=== PATIENT | male | born 1955 | race Caucasian/White ===

== ENCOUNTER → 2017-04-25 16:04 | Outpatient (CLI) | payer OTHER, SELFPAY ==
--- NOTE | 2017-04-25 12:20 | LES_PTH ---
PATIENT: CHARITO CAROLINA LOC: [facility] U#:[id number] AGE/SX: 69/M ROOM: RE04/25/[address]: Dr. Alfredo Monsalve MD : 1955 BED: DIS: SPEC #: [id number] RECD: 04/25/17 15:46 STATUS: DOMINIC ERIKA #: [id number] KAREY: 04/25/17 12:[address]: Alfredo Monsalve DEPT: SURGICAL PATHOLOGY RECD BY: Arias Tiwari Tissues: Skin of abdomen, NOS Procedures: Surgery Specimen Level IV HEADER OPERATION: Excision PRE-OP DIAGNOSIS: Upper abdomen skin lesion TISSUE SUBMITTED: Atypical nevus MICROSCOPIC DIAGNOSIS Chest/upper abdominal skin lesion, excisional biopsy: Pigmented seborrheic keratosis. KONG:iris 04/29/17 COMMENT Case has been reviewed in consultation with Dr. Grace who concurs with the above diagnosis. IDC:AM MICROSCOPIC DESCRIPTION Slides are reviewed. GROSS DESCRIPTION Received in fixative is one container labeled with the patient's name and designated chest nevus. The specimen consists of a light wang fragment of excised skin measuring 1 x 0.6 x 0.3 cm. The specimen is inked, sectioned and totally submitted in one cassette. / JULIO CÉSAR:iris 04/28/17 TC:1 CPT: 55529
== END ==
PROVIDERS: Family Provider Family Medicine; PCP Family Medicine; Visit Provider Family Medicine
DX: L82.1 Other seborrheic keratosis (principal)
CPT/HCPCS: 88305

== ENCOUNTER → 2017-12-08 09:46 | Outpatient (CLI) | payer OTHER, SELFPAY ==
[2017-12-08 12:27] LABS: ALB/GLOB Ratio 1.2 RATIO (0.9-2.4); AST(SGOT) 21 U/L (15-37); Alanine Aminotransfer ALT/SGPT 31 U/L (16-61); Albumin, Serum 4.2 g/dL (3.2-5.0); Alkaline Phosphatase 78 U/L (45-117); Anion Gap 4 (5-15); BUN 14 mg/dL (7-18); BUN/Creat Ratio 16.8 RATIO (10-20); Calcium,Total 8.8 mg/dL (8.5-10.1); Chloride 106 mmol/L (98-107); Cholesterol 157 mg/dL (200); Creatinine, Serum 0.84 mg/dL (0.70-1.30); EST Glomerular Filtration Rate 99 mL/min (>60); Est Glom Filt Rate - Afr Amer 120 mL/min (>60); Globulin 3.4 g/dL (2.2-4.2); Glucose 97 mg/dL (74-106); High Density Lipoprotein 47 mg/dL; Potassium 4.1 mmol/L (3.5-5.1); Protein, Total 7.6 g/dL (6.4-8.2); Sodium Level 138 mmol/L (136-145); Triglycerides 171 mg/dL; Very Low Density Lipoprotein 34 mg/dL (5-40)
[2017-12-08 14:09] LABS: Microalbumin,Random Urine < 5.0 mg/L (NO RANGE EST.)
[2017-12-09 09:47] LABS: Hep C Antibodies <0.1 s/co ratio (0.0-0.9)
== END ==
PROVIDERS: Family Provider Family Medicine; PCP Family Medicine; Visit Provider Family Medicine
DX: Z00.00 Encounter for general adult medical examination without abnormal findings (principal); I10 Essential (primary) hypertension; L40.9 Psoriasis, unspecified
CPT/HCPCS: 36415; 80053; 80061; 82043; 82570; 86803

== ENCOUNTER 2018-02-03 09:22 | Emergency (ER) | payer OTHER, SELFPAY ==
[2018-02-03 09:26] VITALS: BP 165/92; PULSE 62; RESP 16; TEMP 37.1; O2SAT 98; BMI 32.3
--- NOTE | 2018-02-03 09:50 | RAD_ITS ---
STUDY: X-RAY - LEFT FOOT CLINICAL: Male, 62 years old. Pain and swelling and bruising following a fall TECHNIQUE: 3 view(s) of the foot. COMPARISON: None. FINDINGS: There is a plantar calcaneal spur. Normal visualized subtalar, talonavicular, calcaneocuboid, tarsal and tarsometatarsal articulations. Normal metatarsi. There is degenerative arthrosis of the metatarsophalangeal joint of the hallux . Normal tibial and fibular sesamoid bones. Normal interphalangeal joint of the great toe. Normal phalanges of the great toe. Normal second through fifth metatarsophalangeal joints. Normal interphalangeal joints and phalanges of the lesser toes. There is non-specific soft tissue swelling of the foot. Vascular calcification. RAD/Foot min 3 Views IMPRESSION: Plantar spur. Soft tissue swelling. Electronically Signed: Ronnie Rivera MD at 10:10 EST Tel [phone], Service support ,
--- NOTE | 2018-02-03 09:50 | RAD_ITS ---
STUDY: X-RAY - LEFT ANKLE REASON FOR EXAM: Male, 62 years old. Pain and swelling following a fall. TECHNIQUE: 3 view(s) of the ankle. COMPARISON: None. FINDINGS: Normal visualized distal tibia and fibula. Normal medial and lateral malleoli. Normal tibiotalar articulation and ankle mortise. Plantar spur. The visualized subtalar, talonavicular, calcaneocuboid and tarsal articulations are normal. Basilar calcification. Soft tissue swelling worse on the lateral side. RAD/Ankle min 3 Views IMPRESSION: Soft tissue swelling. Plantar spur. Electronically Signed: Ronnie Rivera MD at 10:11 EST Tel [phone], Service support ,
--- NOTE | 2018-02-03 10:24 | ED.VISSUMM ---
- ER Visit Summary Date of Service: 02/03/18 Chief Complaint: [Fall with injury to left ankle] History of Present Illness: The patient is a 62 M [presents to the emergency department after sustaining a fall 2 days ago. Patient states that he was on a ladder a couple of feet off the ground when the ladder slid backwards and he felt kind of onto his right side but twisted his left ankle. Patient was able to bear weight but having continued swelling and bruising which concerned him. Patient denies any other injuries other than a small abrasion to his forehead. Patient denies any head or neck pain. Patient is not on any blood thinners.] Physical Examination: [ HEENT-PERRLA, EOMI. Cranial nerves II through XII grossly intact. TMs clear. Mucous membranes moist. No adenopathy. Cardiovascular-regular rate and rhythm without murmur or ectopy Lungs-clear to auscultation, chest wall stable without crepitus or subcu emphysema Abdomen-normoactive bowel sounds, soft, nontender, no rebound or rigidity, no peritoneal signs. Extremities-intact ?4, normal range of motion, normal pulses. Left ankle-patient has tenderness diffusely about the medial lateral malleolus. Patient has soft tissue swelling diffusely. Patient has tenderness over the talofibular joint. Patient does have some ecchymosis and bruising inferior to the medial lateral malleolus onto the medial lateral portions of the calcaneus. Patient has mild tenderness over the base of the fifth metatarsal. Patient has no real tenderness over the Achilles tendon and no defect in the tendon palpated. Patient has no tenderness over the proximal fibular head. Patient nervously intact. Test Results: [X-rays of the left foot and ankle obtained showed no fractures and only soft tissue swelling.] Emergency Department Course and Treatment: [Will be given an air splint] Treatment Plan: [Advised ice and elevate extremity. Patient to follow-up with his primary care physician in 5-7 days.] Disposition: [This charged home in stable condition] Impression: [Ankle fall Left foot and ankle sprain] This note was generated with [employer] dictation software. It may contain incorrect words, spelling, and punctuation that were not noted in review of the chart prior to signing ED Disposition - Plan for ED Patient: Chief Complaint: Lower Extremity Injury Referrals: Alfredo Monsalve MD [Primary Care Provider] -
--- NOTE | 2018-02-03 10:26 | ED.DEP ---
ED Disposition - Plan for ED Patient: Chief Complaint: Lower Extremity Injury Instructions: ED Sprain Foot, ED Sprain Ankle W X Ray Referrals: Alfredo Monsalve MD [Primary Care Provider] - 5-7 Days
--- OUTSIDE RECORDS SUMMARY | 2018-03-18 00:04 | XMS RPT_ITS ---
:1955 Author Organization [facility] Care Team Providers Name Role Phone Alfredo Monsalve Attending Unavailable Alfredo Monsalve Referring Unavailable Alfredo Monsalve Primary Care Unavailable Alfredo Monsalve Attending Unavailable Alfredo Monsalve Primary Care Unavailable Alfredo Monsalve Primary Care Unavailable Nicolás Talbot Unavailable PROBLEMS PROBLEMS No Problem Records FoundPROCEDURES PROCEDURES No Procedure Records FoundRESULTS RESULTS DISCHARGE INSTRUCTION Observed: 02/03/2018 Status: F Source: YULAN 10:27 AM [facility] REPOSITORY [facility] Medical Records Department [address] [facility] [address] [place] [address] Discharge Instruction 02/03/18 1026 MR#: [id number] Acct: [id number] Name: CHARITO CAROLINA Rep #: [id number] : 1955 62 From: Nicolás Talbot DO PCP: Alfredo Monsalve MD Status: REG ER ED Disposition - Plan for ED Patient: Chief Complaint: Lower Extremity Injury Instructions: ED Sprain Foot, ED Sprain Ankle W X Ray Referrals: Alfredo Monsalve MD [Primary Care Provider] - 5-7 Days What to do if you have Problems For any increased pain, shortness of breath, bleeding, nausea or vomiting, chest pain, or any unexpected problems, contact your Primary Care Provider. Call [facility] ([phone]) or report to the closest Emergency Room. Call 911 if necessary. 02/03/18 1027 <Electronically signed by Nicolás Talbot DO> Date Nicolás Talbot DO Cosigner Signature (If Indicated): Date CC: Alfredo Monsalve MD EMERGENCY DEPARTMENT Observed: 02/03/2018 Status: F Source: YULAN SUMMARY 10:26 AM [facility] RE[facility]ITORY [facility] Medical Records Department [address] [place] [address] Emergency Department Summary 02/03/18 1024 MR#: [id number] Acct: [id number] Name: CHARITO CAROLINA Rep #: [id number] : 1955 62 From: Nicolás Talbot DO PCP: Alfredo Monsalve MD Status: REG ER - ER Visit Summary Date of Service: 02/03/18 Chief Complaint: [Fall with injury to left ankle] History of Present Illness: The patient is a 62 M [presents to the emergency department after sustaining a fall 2 days ago. Patient states that he was on a ladder a couple of feet off the ground when the ladder slid backwards and he felt kind of onto his right side but twisted his left ankle. Patient was able to bear weight but having continued swelling and bruising which concerned him. Patient denies any other injuries other than a small abrasion to his forehead. Patient denies any head or neck pain. Patient is not on any blood thinners.] Physical Examination: [ HEENT-PERRLA, EOMI. Cranial nerves II through XII grossly intact. TMs clear. Mucous membranes moist. No adenopathy. Cardiovascular-regular rate and rhythm without murmur or ectopy Lungs-clear to auscultation, chest wall stable without crepitus or subcu emphysema Abdomen-normoactive bowel sounds, soft, nontender, no rebound or rigidity, no peritoneal signs. Extremities-intact 4, normal range of motion, normal pulses. Left ankle-patient has tenderness diffusely about the medial lateral malleolus. Patient has soft tissue swelling diffusely. Patient has tenderness over the talofibular joint. Patient does have some ecchymosis and bruising inferior to the medial lateral malleolus onto the medial lateral portions of the calcaneus. Patient has mild tenderness over the base of the fifth metatarsal. Patient has no real tenderness over the Achilles tendon and no defect in the tendon palpated. Patient has no tenderness over the proximal fibular head. Patient nervously intact. Test Results: [X-rays of the left foot and ankle obtained showed no fractures and only soft tissue swelling.] Emergency Department Course and Treatment: [Will be given an air splint] Treatment Plan: [Advised ice and elevate extremity. Patient to follow-up with his primary care physician in 5-7 days.] Disposition: [This charged home in stable condition] Impression: [Ankle fall Left foot and ankle sprain] This note was generated with [employer] dictation software. It may contain incorrect words, spelling, and punctuation that were not noted in review of the chart prior to signing ED Disposition - Plan for ED Patient: Chief Complaint: Lower Extremity Injury Referrals: Alfredo Monsalve MD [Primary Care Provider] - What to do if you have Problems For any increased pain, shortness of breath, bleeding, nausea or vomiting, chest pain, or any unexpected problems, contact your Primary Care Provider. Call [facility] ([phone]) or report to the closest Emergency Room. Call 911 if necessary. 02/03/18 1026 <Electronically signed by Nicolás Talbot DO> Date Nicolás Talbot DO Cosigner Signature (If Indicated): Date CC: Alfredo Monsalve MD FOOT MIN 3 VIEWS Observed: 02/03/2018 Status: F Source: ANMOL 9:43 AM [facility] HOSPITAL REPOSITORY [facility] Imaging Services [address] [place] [address] Foot min 3 Views MR#: [id number] Acct: [id number] Name: CHARITO CAROLINA Rep #: [id number] : 1955 M 62 From: Ronnie Rivera MD PCP: Alfredo Monsalve MD Status: REG ER Study: Foot min 3 Views Date of Exam: 02/03/18 Exam# [id number] Ordering Dr: Nicolás Talbot DO STUDY: X-RAY - LEFT FOOT CLINICAL: Male, 62 years old. Pain and swelling and bruising following a fall TECHNIQUE: 3 view(s) of the foot. COMPARISON: None. FINDINGS: There is a plantar calcaneal spur. Normal visualized subtalar, talonavicular, calcaneocuboid, tarsal and tarsometatarsal articulations. Normal metatarsi. There is degenerative arthrosis of the metatarsophalangeal joint of the hallux . Normal tibial and fibular sesamoid bones. Normal interphalangeal joint of the great toe. Normal phalanges of the great toe. Normal second through fifth metatarsophalangeal joints. Normal interphalangeal joints and phalanges of the lesser toes. There is non-specific soft tissue swelling of the foot. Vascular calcification. RAD/Foot min 3 Views IMPRESSION: Plantar spur. Soft tissue swelling. Electronically Signed: Ronnie Rivera MD at 10:10 EST Tel [phone], Service support , CC: Alfredo Monsalve MD; Nicolás Talbot DO Health Researcher: Signed ANKLE MIN 3 VIEWS Observed: 02/03/2018 Status: F Source: ANMOL 9:43 AM [facility] HOSPITAL REPOSITORY [facility] Imaging Services [address] [place] [address] Ankle min 3 Views MR#: [id number] Acct: [id number] Name: CHARITO CAROLINA Rep #: [id number] : 1955 M 62 From: Ronnie Rivera MD PCP: Alfredo Monsalve MD Status: REG ER Study: Ankle min 3 Views Date of Exam: 02/03/18 Exam# [id number] Ordering Dr: Nicolás Talbot DO STUDY: X-RAY - LEFT ANKLE REASON FOR EXAM: Male, 62 years old. Pain and swelling following a fall. TECHNIQUE: 3 view(s) of the ankle. COMPARISON: None. FINDINGS: Normal visualized distal tibia and fibula. Normal medial and lateral malleoli. Normal tibiotalar articulation and ankle mortise. Plantar spur. The visualized subtalar, talonavicular, calcaneocuboid and tarsal articulations are normal. Basilar calcification. Soft tissue swelling worse on the lateral side. RAD/Ankle min 3 Views IMPRESSION: Soft tissue swelling. Plantar spur. Electronically Signed: Ronnie Rivera MD at 10:11 EST Tel [phone], Service support , CC: Alfredo Monsalve MD; Nicolás Talbot DO Health Researcher: Signed COMPREHENSIVE METABOLIC Collected: 12/08/2017 Status: F Source: ANMOL PROFIL 9:48 AM [facility] REPOSITORY TYPE CODE TESTS RESULT OUT OF RANGE REFERENCE UNITS LAB L501.0100 74-106 mg/dL Normal GLU 97 Result Comment: Please note revised GLUCOSE reference range effective 2017. LAB L501.1000 7-18 mg/dL Normal BUN 14 LAB L501.1100 0.70-1.30 mg/dL Normal CREAT,SERUM 0.84 Result Comment: The validity of the calculated GFR AND GFRAA in patients over 70 years has not been determined. Clinical correlation is essential. LAB L501.1110 >60 mL/min Normal EST GFR 99 Result Comment: Non- GFR Calc LAB L501.1115 >60 mL/min Normal EST GFR - AA 120 Result Comment: GFR Calc LAB L501.1300 10-20 RATIO Normal BUN/CRE 16.8 LAB L501.1500 6.4-8.2 g/dL T Normal PROT 7.6 LAB L501.1800 3.2-5.0 g/dL Normal ALB 4.2 LAB L501.1950 2.2-4.2 g/dL Normal GLOB 3.4 LAB L501.2000 0.9-2.4 RATIO Normal A/G 1.2 LAB L501.2200 8.5-10.1 mg/dL CA Normal 8.8 LAB L501.4100 15-37 U/L Normal AST 21 LAB L501.4305 45-117 U/L Normal ALK P 78 LAB L501.4405 16-61 U/L Normal ALT 31 LAB L501.4600 0.20-1.00 mg/dL T Normal BILI 0.80 LAB L501.5300 136-145 mmol/L NA Normal 138 LAB L501.5600 3.5-5.1 mmol/L K Normal 4.1 LAB L501.5900 98-107 mmol/L CL Normal 106 LAB L501.6100 21.0-32.0 mmol/L Normal CO2 28.0 LAB L501.6200 5-15 Low GAP 4 Performed By: #### L500.4050, L500.4100, L502.0250 #### [facility] [facility]. [place], [place], [id number] #### L3100.0625 #### [facility] (refer to report for specific site) refer to report for address and phone number LIPID PROFILE Collected: 12/08/2017 Status: F Source: YULAN 9:48 AM [facility] REPOSITORY TYPE CODE TESTS RESULT OUT OF RANGE REFERENCE UNITS LAB L501.4900 200 mg/dL Normal CHOL 157 Result Comment: <200 mg/dL Desirable 200-240 mg/dL Borderline >240 mg/dL High Risk LAB L501.5000 mg/dL Normal TRIG 171 Result Comment: The drugs N-Acetylcysteine and Metamizole may falsely depress this assay. Serum Triglycerides Reference Interval Normal <150 mg/dL Borderline high 150 - 199 mg/dL High 200 - 499 mg/dL Very High > or = 500 mg/dL LAB L501.6400 mg/dL Normal HDL 47 Result Comment: The drugs N-Acetylcysteine and Metamizole may falsely depress this assay. Reference Range HDL <40 mg/dL Low HDL Cholesterol HDL >or= 60 mg/dL High HDL Cholesterol LAB L501.6500 0-130 mg/dL Normal LDL 76 LAB L501.6600 5-40 mg/dL Normal VLDL 34 Performed By: #### L500.4050, L500.4100, L502.0250 #### [facility] [address] [place], [address] #### L3100.0625 #### [facility] (refer to report for specific site) refer to report for address and phone number MICROALB:CREAT Collected: 12/08/2017 Status: F Source: [facility] UR 9:48 AM [facility] REPOS[facility]ORY TYPE CODE TESTS RESULT OUT OF RANGE REFERENCE UNITS LAB L501.1200 NO RANGE EST. mg/dL 23.90 Normal UR CREAT LAB L502.0500 NO RANGE EST. mg/L < 5.0 Normal MICROALBUMI N,UR LAB L502.0600 <30 mg/g CRE mg/g CRE Test Normal not performed MALB:CREAT Performed By: #### L500.4050, L500.4100, L502.0250 #### [facility] [address] [place], [place], [address] #### L3100.0625 #### [facility] (refer to report for specific site) refer to report for address and phone number HEPATITIS C ANTIBODIES Collected: 12/08/2017 Status: F Source: ANMOL 9:48 AM [facility] REPOS[facility]ORY TYPE CODE TESTS RESULT OUT OF RANGE REFERENCE UNITS LAB L3100.0650 0.0-0.9 s/co ratio Normal HEP C AB <0.1 Result Comment: Negative: < 0.8 Indeterminate: 0.8 - 0.9 Positive: > 0.9 The CDC recommends that a positive HCV antibody result be followed up with a HCV Nucleic Acid Amplification test (603210). Performed at: - [facility] [address], [place], [place] [address] Doll Dresser: Philip Kinsey PhD, Phone: [phone] Performed By: #### L500.4057, L500.0800, L502.0250 #### [facility] [address] [facility]. [place], [place], [address] #### L3100.0625 #### [facility] (refer to report for specific site) refer to report for address and phone number LESION (CHOOSE SITE) Observed: 04/25/2017 Status: F Source: YULAN 12:20 PM [facility] REPOSITORY Patient: CHARITO CAROLINA : 1955 (61/M) Acct Num: [id number] Phys: Bello GARCIA,Alfredo Unit Num: [id number] Loc: [facility] Specimen: [id number] Received: 04/25/17 - 1545 Spec Type: Lesion TISSUES TISSUES: Skin of abdomen, NOS COMMENT Case has been reviewed in consultation with Dr. Grace who concurs with the above diagnosis. IDC:AM GROSS DESCRIPTION Received in fixative is one container labeled with the patient's name and designated chest nevus. The specimen consists of a light wang fragment of excised skin measuring 1 x 0.6 x 0.3 cm. The specimen is inked, sectioned and totally submitted in one cassette. / AM:iris 04/28/17 TC:1 CPT: 60995 HEADER OPERATION: Excision PRE-OP DIAGNOSIS: Upper abdomen skin lesion TISSUE SUBMITTED: Atypical nevus MICROSCOPIC DESCRIPTION Slides are reviewed. MICROSCOPIC DIAGNOSIS Chest/upper abdominal skin lesion, excisional biopsy: Pigmented seborrheic keratosis. SJ:iris 04/29/17 Signed Niles Kumar 04/29/17 <signature on file> Performed By: #### PLES #### [facility] [address] [facility] [place], [address] ALLERGIES ALLERGIES DATE TYPE / CODE NAME / CODE REACTION SEVERITY SOURCE 02/03/2018 Drug No Known Unknown [facility] Allergy/4160 Allergies/F00 Hospital 34665(SNOMED [id number](RXNOR Repository CT) M) ENCOUNTERS ENCOUNTERS ADMIT/DISCHARGE ACCOUNT ADMITTING ENCOUNTER LOCATION SOURCE NUMBER CLASS 02/03/2018/ [id number] Emergency [place] [facility] 8 2 [facility] ing:ED Repository 12/08/2017 [id number] Ambulatory [place] [facility] 6 [facility] ing:MFPLAB Repository 04/25/2017 [id number] Ambulatory [place] [facility] [facility] ing:[facility] Repository PAYERS PAYERS ENCOUNTER GUARANTOR PAYER SUBSCRIBER SOURCE 02/03/2018 CHARITO [place] Alfonzo CHARITO [place] [facility] [id number] Insurance:[facility]: [address] [id number] Number: Repository [id number]: 330 [id number] [phone] () Date:5089-03-19[id number] [place] [id number]: 02/03/2018 Secondary NOT GIVENUNK [place] Insurance:SELF PAY [facility] Number: Effective Repository Date:2018-02-03 12/08/2017 Charito Solis [id number] Insurance:[facility]: [place] [id number] [id number] Number: Repository [id number]: 330 [id number] [phone] () Date:[id number] [facility] [id number] [address]HB: 12/08/2017 Secondary NOT GIVENUNK [place] Insurance:SELF PAY [facility] Number: Effective Repository Date:2017-12-08 04/25/2017 Charito Solis [id number] Insurance:[facility]: [address] [id number] Number: Repository [id number]: [phone] [id number] [phone] () Date:2049-86-72[address], [place] [address]QN: 04/25/2017 Secondary NOT GIVENUNK [place] Insurance:SELF PAY [facility] Number: Effective Repository Date:2017-04-25
== END 2018-02-03 10:39 | disposition home or self-care (01) ==
LOC: ED 09:49
PROVIDERS: Emergency Provider Emergency Medicine; Family Provider Family Medicine; PCP Family Medicine
DX: S93.402A Sprain of unspecified ligament of left ankle, initial encounter (principal); S93.602A Unspecified sprain of left foot, initial encounter; S00.81XA Abrasion of other part of head, initial encounter; W11.XXXA Fall on and from ladder, initial encounter; Y93.9 Activity, unspecified; Y92.9 Unspecified place or not applicable; Y99.9 Unspecified external cause status; Z79.82 Long term (current) use of aspirin; Z79.899 Other long term (current) drug therapy
CPT/HCPCS: 73610; 73630; 99283

== ENCOUNTER 2018-07-23 11:00 | Outpatient (RCR) | payer OTHER, SELFPAY ==
--- NOTE | 2018-07-07 15:41 | HP.PTEVAL_ITS ---
Patient's Visit Information CHARITO CAROLINA is a 62 year old M referred to Physical Therapy by Alfredo Monsalve MD with a diagnosis of R gluteal strain.. Date of Evaluation: 07/07/18 Physical Therapist: Alfredo Vanegas, DPT, OCS, CSCS - Visit Plan Frequency: 1x/Week Duration: 4-6 Weeks Plan: weekly x 4-6 as needed for. monitor effects of stretches., Add ball roll DTR to gluts. Add hip strength bridges, SLR, clamshells. Add WB hip exercises and RDL. - Subjective Findings: A couple years ago had B butt pain and numbness down leg. Diagnosed with gluteal strain and did SKC, piriformis stretch and it went away. It has c ome back over the last year and getting more active after penitentiary in February as he likes to walk in the [employer]. Going to [place] in a month to hike. Has to stop after a mile now to stretch. Exercises seem to help him walk every other time painfree and is helping. Golfing makes him worse. Cutting down trees can be worse. Watching tV may necessitate several adjustments to be comfortable. Sleep is OK. Standing in place makes it very noticeable. Pain is R gluteal and down into R lateral upper leg now and then. Intermittent numbness in leg with standing. Retired from desk work. Basic ADLs are OK - Pain R gluteal Pain Intensity (Out of 10): 0 Pain Intensity Range: 0, 8 Comment: walking , chainsawing worse - Objective Walks and steps are normal as are transfers. I am unable to ellicit pain today. Mild tenderness in R glut/piriformis. 4/5 Hip strength R without pain ext adn abd and ext rotation, 4+ flexion/adduction, no pain. Tightness obvious in B HS, ITB(only to neutral), and piriformis. AROM B hips WNL and without pain. Knees adn ankels strength adn ROM WNL. Sensation WNL to gross light touch in LE. reflexes 2/3 patella and achilles. - hip scouring. L/S AROM WNL and without pain. - Goals Goal 1:: I approp HEP to minimize future problems Goal Time Frame: 4-6 Weeks Goal 2:: Pt feel 90% better with hip symptoms. Goal Time Frame: 4-6 Weeks Goal 3:: Walk for fitness adn cut wood without symptoms. Goal Time Frame: 4-6 Weeks - Rehabilitation Potential Physical Therapy Diagnosis: R gluteal tightness adn strain. Rehabilitation Potential: Good - Anticipated Interventions Patient/Client Instruction: Educate patient on: Condition, Plan of Care For the Purpose of:: To decrease pain, To increase tolerance to activity/condition/position Therapeutic Exercise to Include: Strength training, Flexibilty training, Passive ROM, Active ROM For the Purpose of:: To increase tolerance to activity/condition/position, To improve ability of physical actions for home/community/work/leisure Manual Therapy Techniques to Include: Soft tissue mobilization For the Purpose of:: To decrease pain Thank you for the opportunity to evaluate your patient. For Medicare and Medicare HMO plans, please review the plan of care and approve it. It will need to be FAXED BACK to us at [phone] for Medicare purposes. For Medicare only, by signing this I certify the plan of care. Please let me know if there are questions or concerns regarding this plan of care. Physician Signature: Date:
--- NOTE | 2018-07-23 11:12 | HP.PTDCSUM ---
HP - PT D/C Summary It has been my pleasure to treat CHARITO CAROLINA under orders from Alfredo Monsalve MD, for the diagnosis of R gluteal strain. for a total of 3 visit(s). Discharge Date: 07/23/18 Please see the following information for a summary of their discharge status. - Subjective Subjective: Doing exercises regularly. had three days of not much activity but back to regular walks gives him pain. Resting is comfortable adn that is a plus. Walked Friday and did well with 2/10 pain. Friday woke up painful , did stretches and felt better. Cut grass yesterday for 90 minutes. Also did weed wacking for 30 minutes. Hurt immediately walking afterwards. - Pain R gluteal Pain Intensity (Out of 10): 3 - Overall Improvement % Improvement: 10 - Objective Objective/Function: R hip adduction adn IR slightly limited vs L, LB extension is mod limited and reporduces R glut pain, slight tenderness in R glute but not to contraction. weak in gluts and core at 4-/5 - Goals Goal 1:: I approp HEP to minimize future problems Goal Progress: Goal Met Goal 2:: Pt feel 90% better with hip symptoms. Goal Progress: Not Progressing Goal 3:: Walk for fitness adn cut wood without symptoms. Goal Progress: Not Progressing - Plan Plan: D//C...pt wishes to return to doctor for further diagnostics and is appropriate to do so as he is frustrated. I am suspicious of R hip OA vs L/S facet stenosis. - D/C Information Discharge Comments: Pt to call doctor for next step. If there are questions or concerns regarding this patient's physical therapy, please feel free to call me at [phone]. Thank you for the referral of this patient. Sincerely, Alfredo Vanegas, DPT, OCS, CSCS
== END 2018-07-23 19:00 | disposition home or self-care (01) ==
LOC: PT 11:00
PROVIDERS: Family Provider Family Medicine; PCP Family Medicine; Visit Provider Family Medicine
DX: S76.311D Strain of muscle, fascia and tendon of the posterior muscle group at thigh level, right thigh, subsequent encounter (principal)
CPT/HCPCS: 97110; 97162; 97530

== ENCOUNTER → 2019-09-15 13:56 | Outpatient (CLI) | payer OTHER, SELFPAY ==
[2019-09-15 15:51] LABS: Absolute Neutrophil Count 5.4 X10^3/uL (2.0-7.7); Basophil# 0.04 X10^3/uL; Basophil% 0.5 % (0-1); Eosinophils% 3.7 % (0-5); Hematocrit 44.5 % (40-54); Hemoglobin 15.6 g/dL (13.0-16.5); Lymphocyte % 20.8 % (19-41); Mean Corp Hgb Conc 35.1 g/dL (32-36); Mean Corpuscular Hgb 31.2 pg (27.0-32.0); Mean Platelet Vol. 10.1 fl (6.2-12.0); Monocyte# 0.72 X10^3/uL; Monocyte% 8.8 % (0-10); NRBC Flagged by Analyzer 0 % (0-5); Neutrophil % 65.8 % (47-70); Platelet Count 205 K/mm3 (150-450); RBC Distribution Width CV 11.9 % (11.6-14.6); RBC Distribution Width SD 38.7 fl (35.1-43.9); White Blood Count 8.2 K/mm3 (4.4-11.0)
[2019-09-15 16:16] LABS: ALB/GLOB Ratio 1.2 RATIO (0.9-2.4); AST(SGOT) 27 U/L (15-37); Alanine Aminotransfer ALT/SGPT 36 U/L (16-61); Albumin, Serum 4.2 g/dL (3.2-5.0); Alkaline Phosphatase 79 U/L (45-117); Anion Gap 7 (5-15); BUN 17 mg/dL (7-18); Calcium,Total 9.3 mg/dL (8.5-10.1); Chloride 106 mmol/L (98-107); Creatinine, Serum 0.95 mg/dL (0.70-1.30); EST Glomerular Filtration Rate 85 mL/min (>60); Est Glom Filt Rate - Afr Amer 103 mL/min (>60); Globulin 3.4 g/dL (2.2-4.2); Glucose 89 mg/dL (74-106); PSA,Total - Annual Screen 0.75 ng/mL (0.00-4.00); Potassium 4.1 mmol/L (3.5-5.1); Protein, Total 7.6 g/dL (6.4-8.2); Sodium Level 139 mmol/L (136-145)
[2019-09-15 18:07] LABS: Microalbumin:Creatinine Ratio 7.4 mg/g CRE (<30 mg/g CRE)
== END ==
PROVIDERS: PCP Family Medicine; Visit Provider Family Medicine
DX: Z00.00 Encounter for general adult medical examination without abnormal findings (principal); J39.9 Disease of upper respiratory tract, unspecified; I10 Essential (primary) hypertension
CPT/HCPCS: 36415; 80053; 82043; 82570; 84153; 85025; G0103

== ENCOUNTER → 2020-03-24 10:05 | Outpatient (CLI) | payer OTHER, SELFPAY ==
--- NOTE | 2020-03-24 10:10 | RAD_ITS ---
STUDY: X-RAY - LUMBAR SPINE REASON FOR EXAM: Male, 64 years old. right lower back pain TECHNIQUE: 5 view(s) of the lumbar spine were obtained. COMPARISON: None FINDINGS: Normal lumbar lordosis. There is no substantial scoliosis. There is a normal alignment of the vertebrae. Normal vertebral body height at L1-L4. The L5 vertebral body is slightly wedge-shaped posteriorly. The anterior to posterior measurement of L5 (4.6 cm) is less than the AP measurement of L4 (4.8 cm) findings suggest mild hypoplasia of L4. A definite pars intraarticularis defect is not clearly visualized but can be elusive at this level. Mild disc narrowing at L5-S1. Facet arthrosis primarily at L4-5 and L5-S1. Atherosclerotic vascular calcifications. RAD/L/S Spine Min 4 Views IMPRESSION: Normal alignment of the lumbar spine without fracture, osteolytic or blastic bone lesion. Slightly wedge-shaped L5 slightly reduced in AP measurement compared to L4 suggesting a mild hypoplasia of L5 which is commonly associated with bilateral pars interarticularis defect which is not clearly visualized but may be elusive at this level. Negative for spondylolisthesis. Mild generalized degenerative disc changes. Facet arthrosis at L4-5 and L5-S1. Electronically Signed: Dania Jain MD at 17:29 EST , Service support ,
[2020-03-24 12:56] LABS: ALB/GLOB Ratio 1.2 RATIO (0.9-2.4); AST(SGOT) 24 U/L (15-37); Alanine Aminotransfer ALT/SGPT 30 U/L (16-61); Albumin, Serum 4.2 g/dL (3.2-5.0); Alkaline Phosphatase 74 U/L (45-117); Anion Gap 6 (5-15); BUN 17 mg/dL (7-18); BUN/Creat Ratio 17.7 RATIO (10-20); Chloride 107 mmol/L (98-107); Cholesterol 146 mg/dL (200); Creatinine, Serum 0.96 mg/dL (0.70-1.30); EST Glomerular Filtration Rate 83 mL/min (>60); Est Glom Filt Rate - Afr Amer 101 mL/min (>60); Globulin 3.4 g/dL (2.2-4.2); Glucose 94 mg/dL (74-106); High Density Lipoprotein 55 mg/dL; Potassium 3.6 mmol/L (3.5-5.1); Protein, Total 7.6 g/dL (6.4-8.2); Sodium Level 138 mmol/L (136-145); Triglycerides 123 mg/dL; Very Low Density Lipoprotein 25 mg/dL (5-40)
[2020-03-24 13:05] LABS: Microalbumin,Random Urine 17.8 mg/L (NO RANGE EST.); Microalbumin:Creatinine Ratio 11.8 mg/g CRE (<30 mg/g CRE)
== END ==
PROVIDERS: PCP Family Medicine; Referring Provider Family Medicine; Visit Provider Family Medicine
DX: Z00.00 Encounter for general adult medical examination without abnormal findings (principal); I10 Essential (primary) hypertension; M54.5 Low back pain
CPT/HCPCS: 36415; 72110; 80053; 80061; 82043; 82570

== ENCOUNTER → 2021-09-06 | Outpatient (CLI) | payer MEDICARE, OTHER, SELFPAY ==
[2021-09-06 11:19] LABS: Anion Gap 8 (5-15); BUN 14 mg/dL (7-18); BUN/Creat Ratio 15.6 RATIO (10-20); Calcium,Total 9.1 mg/dL (8.5-10.1); Chloride 105 mmol/L (98-107); EST Glomerular Filtration Rate 90 mL/min (>60); Est Glom Filt Rate - Afr Amer 109 mL/min (>60); Glucose 98 mg/dL (74-106); Sodium Level 140 mmol/L (136-145)
== END | disposition home or self-care (01) ==
LOC: MFPLAB 09:31
PROVIDERS: PCP Family Medicine; Visit Provider Nurse Practitioner Family
DX: Z13.1 Encounter for screening for diabetes mellitus (principal)
CPT/HCPCS: 36415; 80048

== ENCOUNTER → 2021-12-07 | Outpatient (CLI) | payer MEDICARE, OTHER, SELFPAY ==
[2021-12-07 10:23] LABS: Microalbumin,Random Urine 5.9 mg/L (NO RANGE EST.); Microalbumin:Creatinine Ratio 8.1 mg/g CRE (<30 mg/g CRE)
[2021-12-07 11:00] LABS: ALB/GLOB Ratio 1.2 RATIO (0.9-2.4); AST(SGOT) 18 U/L (15-37); Alanine Aminotransfer ALT/SGPT 24 U/L (16-61); Albumin, Serum 3.8 g/dL (3.2-5.0); Alkaline Phosphatase 88 U/L (45-117); Anion Gap 6 (5-15); BUN 16 mg/dL (7-18); BUN/Creat Ratio 18.2 RATIO (10-20); Calcium,Total 8.9 mg/dL (8.5-10.1); Chloride 110 mmol/L (98-107); Cholesterol 144 mg/dL (200); Creatinine, Serum 0.88 mg/dL (0.70-1.30); EST Glomerular Filtration Rate 92 mL/min (>60); Est Glom Filt Rate - Afr Amer 111 mL/min (>60); Globulin 3.3 g/dL (2.2-4.2); Glucose 98 mg/dL (74-106); High Density Lipoprotein 48 mg/dL; PSA,Total- Diagnostic 0.64 ng/mL (0.0-4.0); Potassium 4.1 mmol/L (3.5-5.1); Protein, Total 7.1 g/dL (6.4-8.2); Sodium Level 141 mmol/L (136-145); Thyroid Stim Hormone (TSH) 2.99 uIU/mL (0.358-3.74); Triglycerides 137 mg/dL; Very Low Density Lipoprotein 27 mg/dL (5-40)
[2021-12-16 22:06] LABS: Testosterone, Free 10.91 ng/dL (5.00-21.00)
[2021-12-17 16:19] LABS: Testosterone, % Free 1.92 % (1.50-4.20); Testosterone, Total 568 ng/dL (264-916)
== END | disposition home or self-care (01) ==
LOC: MFPLAB 09:24
PROVIDERS: PCP Family Medicine; Referring Provider Family Medicine; Visit Provider Family Medicine
DX: I10 Essential (primary) hypertension (principal); E78.5 Hyperlipidemia, unspecified; N52.9 Male erectile dysfunction, unspecified
CPT/HCPCS: 36415; 80053; 80061; 82043; 82570; 84153; 84402; 84403; 84443

== ENCOUNTER 2022-02-28 06:00 | Inpatient (IN) | payer MEDICARE, OTHER, SELFPAY ==
--- NOTE | 2022-02-13 14:05 | RAD_ITS ---
STUDY: X-RAY CHEST REASON FOR EXAM: Male, 66 years old. PREOP TECHNIQUE: Single AP portable view of the chest. COMPARISON: None. FINDINGS: The lungs are clear and expanded. There is no demonstrated pleural abnormality. Normal size heart. Normal mediastinum and graham. Normal visualized pulmonary arteries. There is atherosclerotic calcification of the aortic arch with tortuosity. There are diffuse degenerative changes of the visualized thoracic spine. Normal visualized ribs, clavicles, and shoulders. There is no demonstrated abnormality of the visualized soft tissue structures of the upper abdomen. RAD/Chest 1 View IMPRESSION: No acute abnormality is seen. Electronically Signed: Ronnie Rivera MD at 15:42 EST ,
--- NOTE | 2022-02-13 14:12 | EKG12_ITS ---
Test Reason : PRE OP Blood Pressure : / mmHG Vent. Rate : 065 BPM Atrial Rate : 065 BPM P-R Int : 174 ms QRS Dur : 106 ms QT Int : 382 ms P-R-T Axes : 052 -28 004 degrees QTc Int : 397 ms Normal sinus rhythm Normal ECG Confirmed by NATALIE GARCIA, ANDREW ([id number]), medical transcription editor TREMAINE BOYD ([id number]) on 02/14/2022 9:40:07 AM Referred By: SCOTT Confirmed By:ANDREW ESTRADA MD
[2022-02-13 14:43] LABS: Absolute Neutrophil Count 4.5 X10^3/uL (2.0-7.7); Basophil# 0.05 X10^3/uL; Basophil% 0.7 % (0-1); Eosinophil# 0.46 X10^3/uL; Eosinophils% 6.3 % (0-5); Hemoglobin 15.6 g/dL (13.0-16.5); Mean Corp Hgb Conc 37.1 g/dL (32-36); Mean Corpuscular Hgb 32.1 pg (27.0-32.0); Mean Corpuscular Volume 86.4 fL (80-94); Mean Platelet Vol. 9.2 fl (6.2-12.0); Monocyte# 0.59 X10^3/uL; Monocyte% 8.1 % (0-10); NRBC Flagged by Analyzer 0 % (0-5); Neutrophil # 4.54 X10^3/uL (2.7-7.7); Neutrophil % 62.6 % (47-70); Platelet Count 217 K/mm3 (150-450); RBC Distribution Width CV 12.4 % (11.6-14.6); RBC Distribution Width SD 39.2 fl (35.1-43.9); Red Blood Count 4.86 M/mm3 (4.6-6.2); White Blood Count 7.3 K/mm3 (4.4-11.0)
[2022-02-13 14:55] LABS: International Normalized Ratio 1.1; Prothrombin Time (Protime)PT. 13.6 SECONDS (11.7-14.9)
[2022-02-13 14:56] LABS: Partial Thromboplast Time 27.5 Seconds (24.1-36.2)
[2022-02-13 15:07] LABS: Anion Gap 3 (5-15); BUN 16 mg/dL (7-18); BUN/Creat Ratio 15.7 RATIO (10-20); Chloride 107 mmol/L (98-107); Creatinine, Serum 1.02 mg/dL (0.70-1.30); EST Glomerular Filtration Rate 78 mL/min (>60); Est Glom Filt Rate - Afr Amer 94 mL/min (>60); Glucose 110 mg/dL (74-106); Potassium 4.1 mmol/L (3.5-5.1); Sodium Level 140 mmol/L (136-145)
[2022-02-28] VITALS (16 sets, daily range): BP systolic 130–163; BP diastolic 66–89; PULSE 68–88; RESP 16–19; TEMP 36.1–36.8; O2SAT 95–100; BMI 32.8
[2022-02-28] MEDS: Lactated Ringers 1,000 ML 15 ML IV ×2 (06:20→11:30)
--- NOTE | 2022-02-28 06:47 | DS.PCM_ITS ---
Providers Date of Admission: 02/28/22 Primary Care Physician: Dr. Alfredo Monsalve MD Reason For Visit: lumbar 5-sacral 1 posterior lumbar fusion Diagnosis Discharge Diagnosis (1) Lumbar stenosis: Status: Acute Code(s): M48.061 - Spinal stenosis, lumbar region without neurogenic claudication Medications at Discharge Home Medications pravastatin 80 mg tablet 80 mg PO DAILY Check with primary doctor 02/03/18 amlodipine 10 mg tablet 10 mg PO DAILY Check with primary doctor 02/12/22 irbesartan 300 mg tablet 300 mg PO DAILY Check with primary doctor 02/12/22 propranolol 160 mg capsule,24 hr,extended release 160 mg PO DAILY Check with primary doctor 02/12/22 cetirizine 10 mg tablet (Zyrtec) 10 mg PO DAILY Check with primary doctor 02/28/22 hydrocodone-acetaminophen 5-325mg 5mg-325mg 1 tab PO Q6H 7 days #28 tabs 02/28/22 Hospital Course Operations - (L5-S1 posterior lumbar interbody fusion, decompression, posterior spinal fusion with instrumentation, use of allograft) Summary of Care Provided Minutes Spent on Discharge: 15 Hospital Course: The patient is a 66-year-old male who underwent L5-S1 posterior lumbar interbody fusion, decompression, posterior spinal fusion with instrumentation, use of allograft on 02/28/2022. He was subsequently admitted. The hospitalist was consulted for medical management. He progressed well. His pain was well controlled and he was mobilizing well. No significant medical issues were reported. He was subsequently discharged home on 03/01/2022 to follow-up with Dr. Tello in 3 weeks Physical Exam Const alert, oriented x3 and no apparent distress General Appearance: cooperative, comfortable and well kempt HEENT normocephalic and head/scalp atraumatic Head and Scalp: normal to inspection Eyes EOMs intact bilaterally and conjunctivae normal Neck full ROM General: normal visual inspection Chest inspection of chest normal and palpation of chest normal Resp normal respiratory effort and normal air movement Effort and Inspection: able to speak in complete sentences Cardio regular rate and peripheral pulses 2+ throughout GI soft to palpation, non-tender and non-distended Back/Spine Back/Spine Narrative: Dressing clean dry and intact. Incision well approximated with interrupted sutures in place. No tenderness erythema drainage or fluctuance Cervical Spine: cervical ROM normal Thoracic Spine / Upper Back: normal to inspection Lumbar Spine / Lower Back: normal to inspection Extremity normal to inspection, full ROM, normal capillary refill, no clubbing, cyanosis or edema and no calf tenderness Skin no rashes or lesions noted General Skin Exam: no breakdown Neuro oriented x3, CN's II-XII intact bilaterally, moves all extremities, no focal motor deficits, no sensory deficits noted and deep tendon reflexes 2+ bilaterally Motor Exam: strength 5/5 throughout and muscle tone normal throughout Weight / BMI Weight Weight: 228 lb 13.437 oz Body Mass Index (BMI) 32.8 ABG / Lab / Microbiology Data Result Diagrams: 02/13/22 14:19 02/13/22 14:19 D/C Instructions Discharge Diet: No restrictions Weight Bearing Status: Weight bearing as tolerated Lifting Restrictions: 5 pounds Additional Activity Instructions: No repetitive bending twisting or lifting greater than 5 pounds. Wear back brace at all times when out of bed Call your doctor if your incision/area has: Continuous Slow Oozing, Sudden Increased Bleeding, Increased Pain/ Swelling, Increased Redness, Foul Smelling Discharge and Swelling at the incision site Call your doctor if you observe: Fever of 101 or Higher, Coldness, Increased Pain, Numbness or Tingling, Change in Color, Inability to urinate, Inability to have a bowel movement, Using more than 1 pad per hour, Shortness of breath, Dizziness, Fainting spells, Swelling in the ankles, Chest pain, Prolonged h iccupping, Increased palpitations (irregular heartbeat), Calf discomfort and Uncontrolled pain Change Dressing in: Daily Cleanse incision/area with: Do not get Incision Wet and Keep Dressing Clean & Dry Additional Dressing/Incision Instructions: Change dressing daily with iodine gauze and tape. Use waterproof dressing to shower Please Follow Up With: Kehinde Tello DO When: 3 weeks Meaningful Use Info Meaningful Use Diagnoses (Choose all that apply): None applicable Discharge Plan Admission Admit Date/Time: 02/28/22 06:00 Attending Provider: Kehinde Tello Primary Care Provider: Alfredo Monsalve Consulting Providers: Alesha Gu ; Alesha Ayala ; Amaya Knowles ; Ginny Finch ; Lawrence Christiansen ; Corbin Kearney ; Alfredo Champagne ; Nia Soto ; Mauri Fiore ; Je Moya ; Alex Mansfield ; Era Godoy ; Parminder Morin ; Brianna Domínguez ; Matias Evangelista ; Doroteo Phillips ; Kenotn Aaron ; Jackie Hedirck ; Michael Bradshaw ; Barb Ardon NP Instructions Additional Instructions / Restrictions: 1. During your procedure, you received sedation through your IV. Please follow these instructions for the next 24 hours: Do not drive a motor vehicle, do not drink any alcoholic beverages, and do not sign any legal documents or make personal or business decisions. A responsible adult should stay with you at least 6 hours after the procedure. 2. Keep your surgical site/incision clean and the dressing dry and intact. You may use an ice pack at the surgical site to reduce any swelling or discomfort. Change dressing every day with iodine gauze and tape. Use waterproof dressing for shower 3. Monitor the incision site for any signs or symptoms of infection. Watch for redness, excessive swelling or drainage, or continued pain at the incision site after 3 days. Contact your physician immediately for a fever, chills or a temper ature of 101.5? F or greater. 4. Take your medication exactly as prescribed by your physician. Do not attempt to wean yourself off any of your medications even though your pain is improving. This process needs to be carefully monitored by your doctor. Take any antibiotics prescribed exactly as directed and until they are gone. 5. Avoid stretching, bending, pulling, twisting or any sudden movements. Do not bend or twist at the waist. Wear back brace at all times while out of bed 6. No lifting greater than 5 pounds. 7. Do not operate a motor vehicle, equipment or a power tool while taking pain medication 8. Do not have any manipulation done by a chiropractor or any other physician without first consulting with the surgeon 9. Please contact our office if you are even scheduled for a CT scan or an MRI. 10. Please call us if you have any questions, problems or concerns. Discharge Orders/Prescriptions Prescriptions: New hydrocodone-acetaminophen 5-325 mg tablet 1 tab PO Q6H 7 Days Qty: 28 0RF Continued pravastatin 80 MG tablet 80 mg PO DAILY Label Comments: TAKE 1 TABLET BY MOUTH EVERY DAY propranolol 160 mg Capsule,Extended Release 24 Hr 160 mg PO DAILY amlodipine 10 mg Tablet 10 mg PO DAILY irbesartan 300 mg Tablet 300 mg PO DAILY cetirizine [Zyrtec] 10 mg Tablet 10 mg PO DAILY Discontinued aspirin 81 MG tablet,chewable 81 mg PO DAILY@0800 Other Ambulatory Orders: 12 Lead EKG (Routine) Timeframe: [id number] Location: None Selected Ordered By: Dr. Kehinde Tello Referrals / Follow Up: Alfredo Monsalve MD [Primary Care Provider] - Kehinde Tello DO [Med Staff - Active Staff] - Disposition Disposition (needs filled in before D/C Order can be placed): Home, Self Care
--- NOTE | 2022-02-28 06:47 | PCM.OPRPT ---
Problems Associated Problem List Diagnoses (1) Lumbar stenosis: Report of Operation Date of Procedure: 02/28/22 Pre-Operative Diagnosis: 1. Lumbar stenosis L5-S1 with spondylosis 2. Lumbar degenerative disc disease Post-Operative Diagnosis: 1. Lumbar stenosis L5-S1 with spondylosis 2. Lumbar degenerative disc disease Surgery/Procedure Performed:: 1. L5-S1 posterior lumbar interbody fusion 2. Insertion of intervertebral biomechanical device x1 3. Structural allograft for spinal fusion 4. L5 bilateral laminectomies, foraminotomies, facetectomies, decompression of bilateral nerve roots 5. S1 bilateral laminectomies, foraminotomies, facetectomies, decompression of bilateral nerve roots 6. L5-S1 posterior lateral fusion 7. Pedicle screw fixation 8. Local autograft for spinal fusion 9. Neuro monitoring bilateral upper and bilateral lower extremities Description of Surgical Findings:: The patient is a 66-year-old male with intractable back and leg pain. Image studies confirm the above diagnoses. He has failed conservative treatment to include medication physical therapy and injections. The patient opted for operative intervention understanding the risk to include but not limited to infection, bleeding, damage to nerves arteries and veins, possibility of spinal fluid leak, nonunion, hardware failure, continued pain, need for further surgery, deep vein thrombosis, pulmonary embolism, heart attack, risk of stroke or . The patient was identified in the preoperative holding area. There he received preoperative IV antibiotics Ancef and was then transferred to the operative suite. Once in the operative suite after general endotracheal anesthesia was established, the patient was positioned prone on the Ajay operating table. All bony prominences were padded accordingly. The lumbar spine was prepped and draped in a standard surgical fashion. Bear hugger's were not turned on until the drapes were placed and sealed with Ioban. A midline incision was made and taken down to the lumbodorsal fascia. The fascia was divided and subperiosteal dissection was taken down to the level of the bilateral transverse processes and sacral ala of L5 and S1. A bone scalpel was then used to make cuts in the lamina of L5 and a series of rongeurs and Kerrisons was used removing the spinous process and lamina at L5 then facetectomies of greater than 50% were performed as well as foraminotomies decompressing the bilateral nerve roots. Given the severity of the stenosis I needed to perform wide bilateral laminectomies and near complete facetectomies in order to decompress the neural elements therefore creating instability necessitating the fusion. I then proceeded with interbody implantation. The nerve roots and dura were identified and retracted medially. A knife was utilized to perform an annulotomy. An endplate elevator, curettes and pituitaries were utilized to remove disc material. The endplates were prepared with a rasp. An appropriate sized intervertebral peek cage device measuring 12 mm was packed with morselized cancellous allograft and impacted into position thus completing the posterior lumbar interbody fusion at L5-S1. I then proceeded with pedicle screw fixation. Starting points were found at the junction of the superior articular process and transverse process and sacral ala. A power bur was utilized for the starting points. Pedicle probes were placed bilaterally and then 6.5 x 50 mm screws were placed bilaterally at L5 and 6.5 x 40 mm screws were placed bilaterally at S1. The screws were tested with intraoperative neurophysiologic monitoring and tested within normal limits. Connecting rods were applied and secured with set screws. I then proceeded with the posterior lateral fusion. This was accomplished by decorticating the transverse processes bilaterally at L5 and the sacral ala bilaterally at S1. This decorticated bone was then bridged with local autograft from the decompression as well as morselized cancellous allograft therefore completing the posterior lateral fusion at the L5-S1 level. The incision was then thoroughly irrigated. Tisseel was placed over the dura as a hemostatic agent. The fascia was closed with #1 Vicryl, subcutaneous with 2-0 Vicryl and skin with 2-0 nylon. A sterile dressing was applied with 4 x 4's ABD and tape. Sponge instrument and needle counts were correct at the end of the case. Neurophysiologic monitoring was maintained at baseline throughout the duration of the case. The patient was extubated and taken to the PACU without incident. Surgeon: Kehinde Tello Type of Anesthesia: General Drains: None Estimated Blood Loss (mL): 250 cc Fluids Replaced: 1800 cc Grafts/Implants Used: Unified spine, Talos Complications None Admit VTE Documentation VTE Present on Admission: No
--- NOTE | 2022-02-28 06:47 | PCM.PN.ORT ---
Subjective Subjective The patient was seen and examined postoperatively in the PACU. He is resting comfortably. His pain is controlled. He denies any acute numbness tingling or weakness Objective Data Objective Data Vital Signs: Vital Signs Temp Pulse Resp BP Pulse Ox O2 Del Method 98.3 F 68 19 H 146/73 H 97 Room Air 02/28/22 06:40 02/28/22 06:40 02/28/22 06:40 02/28/22 06:40 02/28/22 06:40 02/28/22 06:40 Oxygen Delivery Method Room Air Weight: 228 lb 13.437 oz Body Mass Index (BMI) 32.8 Lab / Micro Data Result Diagrams: 02/13/22 14:19 02/13/22 14:19 Physical Exam Const alert, oriented x3 and no apparent distress General Appearance: cooperative, comfortable and well kempt HEENT normocephalic and head/scalp atraumatic Head and Scalp: normal to inspection Eyes EOMs intact bilaterally and conjunctivae normal Neck full ROM General: normal visual inspection Chest inspection of chest normal and palpation of chest normal Resp normal respiratory effort and normal air movement Cardio regular rate, regular rhythm and peripheral pulses 2+ throughout GI soft to palpation, non-tender and non-distended Back/Spine Back/Spine Narrative: Dressing clean dry and intact. Cervical Spine: cervical ROM normal Thoracic Spine / Upper Back: normal to inspection Lumbar Spine / Lower Back: normal to inspection Extremity normal to inspection, full ROM, normal capillary refill, no clubbing, cyanosis or edema and no calf tenderness Skin no rashes or lesions noted General Skin Exam: no breakdown Neuro oriented x3, CN's II-XII intact bilaterally, moves all extremities, no focal motor deficits, no sensory deficits noted and deep tendon reflexes 2+ bilaterally Motor Exam: strength 5/5 throughout and muscle tone normal throughout Assessment & Plan Assessment/Plan (1) Lumbar stenosis: PLAN: Okay to admit to floor See orders Discharge planning likely home tomorrow
[2022-02-28] MEDS: Cefazolin 2 GM in 0.9% Normal Saline 100 ML IV (07:40)
--- NOTE | 2022-02-28 07:40 | RAD_ITS ---
STUDY: X-RAY - LUMBAR SPINE REASON FOR EXAM: Male, 66 years old. L5-S1 POSTERIOR FUSION WITH INSTRUMENTS TECHNIQUE: Intraoperative view(s) of the lumbar spine were obtained. 5 IMAGES. DOSE SUMMARY 134.9 SEC 85.3 mGy COMPARISON: March 24, 2020 FINDINGS: Intraoperative fluoroscopy utilized during fusion at L5-S1 . RAD/Lumbar Spine 2 or 3 Views IMPRESSION: Intraoperative fluoroscopy. Electronically Signed: Pacheco Hernandez MD at 8:30 EST ,
[2022-02-28] MEDS: THROMBIN (RECOMBINANT) 20,000 UNIT VIAL 20000 UNIT TOPICAL (08:05)
[2022-02-28] MEDS: Bupivacaine Mpf 0.5% 30 ML VIAL (08:05)
[2022-02-28] MEDS: Heparin 10,000 UNITS/10 ML Vial 10000 UNITS (08:05)
[2022-02-28] MEDS: amLODIPine 10 MG Tablet PO (13:49)
[2022-02-28] MEDS: Acetaminophen 500 MG Tablet 1000 MG PO ×2 (13:49→21:07)
[2022-02-28] MEDS: Losartan Potassium 50 MG Tablet 100 MG PO (13:50)
[2022-02-28] MEDS: Loratadine 10 MG Tablet PO (13:50)
[2022-02-28] MEDS: Cefazolin 1 GM/50 ML BAG IV (15:09)
[2022-02-28] MEDS: Propranolol LA 80 MG Capsule 160 MG PO (15:09)
--- NOTE | 2022-02-28 15:21 | NURSING ---
Physical therapy working with pt now.
--- NOTE | 2022-02-28 16:16 | PN.HOSP_ITS ---
Subjective Subjective Patient seen postoperatively in his room and is feeling well. Anxious to have his Renteria catheter removed. Objective Data Objective Data Vital Signs: Vital Signs Temp Pulse Resp BP Pulse Ox O2 Del Method O2 Flow Rate 36.3 C L 88 18 152/85 H 97 Room Air 6 02/28/22 15:36 02/28/22 15:36 02/28/22 15:36 02/28/22 15:36 02/28/22 15:36 02/28/22 15:36 02/28/22 15:20 Oxygen Flow Rate (L/min) 6 Oxygen Delivery Method Room Air Weight: 103.8 kg Body Mass Index (BMI) 32.8 Intake & Output: Intake and Output for Last 24 Hours 02/26/22 02/27/22 02/28/22 23:59 23:59 23:59 Intake Total 1110 / 1110 Output Total 250 / 250 Balance 860 / 860 Lab / Micro Data Result Diagrams: 02/13/22 14:19 02/13/22 14:19 Physical Exam Const alert and no apparent distress Constitutional Narrative: Up in chair. No acute distress. HEENT head/scalp atraumatic and moist oral mucous membranes Neck no lymphadenopathy and supple Resp normal respiratory effort, no retractions, no use of accessory muscles and clear to auscultation bilaterally Cardio regular rate, regular rhythm, S1 normal heart sound and S2 normal heart sound GI normal to inspection, nondistended, normoactive bowel sounds GI Narrative: Renteria catheter in place with light yellow urine. Psych affect normal Assessment & Plan Assessment/Plan (1) Lumbar stenosis: PLAN: Status post on 02/28: L5-S1 posterior lumbar interbody fusion, Insertion of intervertebral biomechanical device x1, Structural allograft for spinal fusion, L5 bilateral laminectomies, foraminotomies, facetectomies, decompression of bilateral nerve roots, S1 bilateral laminectomies, foraminotomies, facetectomies, decompression of bilateral nerve roots, L5-S1 posterior lateral fusion, Pedicle screw fixation, Local autograft for spinal fusion Per spine surgery PLAN: Plan Chronic conditions * Hypertension: Stable continue with amlodipine and losartan propranolol. Resume irbesartan upon discharge * HLP: Continue with statin. Atorvastatin here, pravastatin at home. Medically stable for discharge. We will reconcile the patient's chronic home medications for discharge. Will sign off from a medical perspective but please do not hesitate to contact the hospital service for any questions or new issues. Charges/Coding Visit Charges Inpatient E&M: 67424 Subs Hosp L2
[2022-02-28] MEDS: Ensure Surgery 237 ML LIQUID PO (17:47)
[2022-02-28] MEDS: Lactated Ringers 1,000 ML 100 ML IV (21:01)
[2022-02-28] MEDS: Pravastatin 80 MG Tablet PO (21:07)
[2022-03-01] MEDS: Cefazolin 1 GM/50 ML BAG IV (00:01)
[2022-03-01] MEDS: oxyCODONE 5 MG Tablet PO (00:02)
[2022-03-01 02:39] VITALS: BP 151/67; PULSE 78; RESP 18; TEMP 36.6; O2SAT 96
[2022-03-01 03:06] VITALS: PULSE 72
[2022-03-01 06:13] VITALS: BP 145/63; PULSE 70; RESP 18; TEMP 36.5; O2SAT 96
[2022-03-01 06:14] VITALS: BP 145/63; PULSE 70; RESP 18; TEMP 36.5; O2SAT 96
[2022-03-01] MEDS: Acetaminophen 500 MG Tablet 1000 MG PO (06:24)
[2022-03-01 07:55] VITALS: BP 152/77; PULSE 62; RESP 18; TEMP 36.4; O2SAT 97
[2022-03-01] MEDS: Losartan Potassium 50 MG Tablet 100 MG PO (08:01)
[2022-03-01] MEDS: Ensure Surgery 237 ML LIQUID PO (08:02)
[2022-03-01] MEDS: amLODIPine 10 MG Tablet PO (08:02)
[2022-03-01] MEDS: Loratadine 10 MG Tablet PO (08:02)
--- NOTE | 2022-03-01 09:54 | CASEMGMT ---
Addendum entered by Mana May 03/01/22 12:13: FWW signed and requested by molding room supervisor. Cut File Clerk and nurse worked out that pt will pick up and delivery driver at main entrance. Pt nurse aware pt will need to sign consignment form. Original Note: RN VEE Assessment: Face to Face with pt for initial transition planning/care coordination assessment. RN CM introduced self and role at [facility], pt voices understanding and consents to assessment. Pt is A/O x4 and answers all questions appropriately at this time. Pt sitting up in chair in no distress. Care providers, pharmacy, and demographics verified/updated. Admitting Dx: lumbar 5-sacral 1 post lumbar fusion PCP:Bello Specialists: Omer Ibarra Pharmacy: [facility] Retail Insurance: MCR, MMO Prescription Benefit: yes LNOK: MCR, MMO Living Arrangements: Pt lives with in a single story house with 5 steps to enter through the garage with rails on each side and 4 steps to enter through the front with rails on each side. Pt reports he is typically I in ADL's and denies concerns at home. Transportation: Pt drives self and denies concerns with transportation. Pt will provide transportation when pt cannot drive. Pt neighbor will drive for dc today d/t weather. DME/HHC/SNF: Pt has a cane and shower chair at home. Pt denies hx of HHC or SNF stays. Pt states no concerns with going home at time of dc. Pt is interested in a FWW. Pt provided with a verbal local in network list of DME companies, pt chose [employer]. TC to , states his office is closed and requests rx be obtained by hospitalist. Pt states no further concerns/needs. CM to follow. Advised pt to ask CM if any further question/concerns/needs arise, voices understanding. Pt Goal: Home Plan: Home
[2022-03-01] MEDS: Propranolol LA 80 MG Capsule 160 MG PO (10:04)
== END 2022-03-01 12:10 | disposition home or self-care (01) | DRG 455 ==
LOC: ACINP 06:54 → MS3 08:06
PROVIDERS: Admitting Provider Orthopaedic Surgery; PCP Family Medicine; Referring Provider Orthopaedic Surgery; Visit Provider Orthopaedic Surgery
PROC: 0SG00AJ Fusion of Lumbar Vertebral Joint with Interbody Fusion Device, Posterior Approach, Anterior Column, Open Approach (ICD-10-PCS; CPT 22630; principal; 2022-02-28 07:00)
DX: M48.061 Spinal stenosis, lumbar region without neurogenic claudication (principal); E78.00 Pure hypercholesterolemia, unspecified; M47.817 Spondylosis without myelopathy or radiculopathy, lumbosacral region; M48.07 Spinal stenosis, lumbosacral region; M51.36 Other intervertebral disc degeneration, lumbar region; I10 Essential (primary) hypertension; Z79.899 Other long term (current) drug therapy
CPT/HCPCS: 36415; 71045; 72100; 76000; 80048; 85025; 85610; 85730; 93005; 97162; 99251; C1713; J7120; G0463

== ENCOUNTER 2022-10-01 08:43 | Day surgery (SDC) | payer MEDICARE, OTHER, SELFPAY ==
--- NOTE | 2022-10-01 | COLBX_PTH ---
PATIENT: CHARITO CAROLINA LOC: EN U#:[id number] AGE/SX: 67/M ROOM: RE10/01/[address]: Dr. Pablo Tejada MD : 1955 BED: DIS: 10/01/2022 SPEC #: [id number] RECD: 10/01/22 13:32 STATUS: DOMINIC ERIKA #: [id number] KAREY: 10/01/22 00:[address]: Pablo Tejada DEPT: SURGICAL PATHOLOGY RECD BY: Silvino Youngblood ENTERED: 10/01/22 13:33 SP TYPE: COLON BX OTHR DR: Dr. Alfredo Monsalve MD Tissues: Descending colon Procedures: Surgery Specimen Level IV HEADER OPERATION: Colonoscopy (MAC), polypectomy PRE-OP DIAGNOSIS: Positive Cologuard test TISSUE SUBMITTED: Descending polyp at 30.0 cm MICROSCOPIC DIAGNOSIS Descending colon polyp at 30.0 cm, biopsy: Tubular adenoma. AM:iris 10/02/2022 MICROSCOPIC DESCRIPTION Slides are reviewed. GROSS DESCRIPTION Received in fixative is one container labeled with the patient's name and designated descending polyp at 30.0 cm. The specimen consists of a pink-red polyp measuring 1.0 x 1.0 x 0.7 cm. The presumed base is inked. The polyp is bisected and submitted entirely in one cassette. / SJ:rg 10/01/2022 TC:1 CPT: 39352
[2022-10-01 09:08] VITALS: BP 147/62; PULSE 63; RESP 16; TEMP 36.4; O2SAT 98; BMI 32.5
[2022-10-01] MEDS: Lactated Ringers 1,000 ML 15 ML IV (09:12)
--- NOTE | 2022-10-01 09:21 | HP.PCM_ITS ---
History and Physical Date of Admission: 10/01/22 Intake Vital Signs 02/28/2213:16 08/22/2308:41 Height 5 ft 10 in 5 ft 10 in Weight: 231 lb BMI 33.1 BP 151/74 H Blood Pressure Location Rt brachial Position Sitting Respiration 18 Intake Visit Reasons: POSITIVE COLOGUARD Chief Complaint: positive cologuard Physical Therapy Technician Required: No Is patient in pain?: No Allergies escitalopram Adverse Reaction (Mild, Verified 08/22/22 09:43) Other Medications pravastatin 80 mg tablet 80 mg PO DAILY Check with primary doctor 02/03/18 [History Confirmed 08/22/22] amlodipine 10 mg tablet 10 mg PO DAILY Check with primary doctor 02/12/22 [History Confirmed 08/22/22] irbesartan 300 mg tablet 300 mg PO DAILY Check with primary doctor 02/12/22 [History Confirmed 08/22/22] propranolol 160 mg capsule,24 hr,extended release 160 mg PO DAILY Check with primary doctor 02/12/22 [History Confirmed 08/22/22] cetirizine 10 mg tablet (Zyrtec) 10 mg PO DAILY Check with primary doctor 02/28/22 [History Confirmed 08/22/22] tadalafil 5 mg tablet 5 mg PO 08/22/22 [History Confirmed 08/22/22] PFSH Medical History (Updated 08/22/22 @ 10:[address] Pablo Tejada MD) Anxiety Heartburn High cholesterol Hypertension Marijuana use Non-smoker Wears glasses Surgical History (Updated 08/22/22 @ 09:39 by Martha Ortega) History of appendectomy History of tonsillectomy History of wisdom tooth extraction S/P spinal fusion S/P vasectomy Family History (Updated 08/22/22 @ 09:40 by Martha Ortega) Father CAD (coronary artery disease) HypertensionGrandmother Heart disease HypertensionAunt Cancer ovarianUncle Cancer kidney Social History (Updated 08/22/22 @ 09:40 by Martha Ortega) Smoking Status: Never smoker alcohol intake: current alcohol intake frequency: 3 or more drinks per day HPI HPI HPI: Patient is a 66-year-old male here for positive Cologuard test. He had Cologuard in 2019 which was negative. His last colonoscopy was 2006. He denies any abdominal pain or blood in stool. ROS General General: No weight change, appetite, fatigue, colon cancer, breast cancer or weakness HEENT HEENT: No difficulty swallowing, eye injury, eye surgery, swollen glands or hoarseness Endo Endocrine: No thyroid disease, diabetes mellitus, thyroid cancer, Hair loss, heat intolerance or cold intolerance Skin Skin: No rash or changing moles Breast Breast: No left breast lump, right breast lump, nipple discharge, breast pain, abnormal mammogram, abnormal US or breast enlargement Musc Musculoskeletal: Yes back problems; No arthritis, rheumatoid arthritis, gout or joint pain Cardio Cardiovascular: Yes high blood pressure; No murmur, pacemaker, heart disease, atrial fibrillation, heart attack, heart stent, palpitations, shortness of breat with exertion or chest pain Psych Psychiatric: Yes anxiety; No depression or hearing voices Resp Respiratory: No shortness of breath, No sleep apnea, No cough, No COPD, No asthma, No emphysema and No wheezing Gastro Gastrointestinal: No abdominal pain, No nausea or vomiting, No diarrhea, No constipation, No blood in stool, No acid reflux, Yes hemorrhoids, No ulcers, No gallbladder problem and No black,tarry stools Christopher Hematologic: Yes blood thinners, No blood disorders, No bleeding, No anemia and No blood clots Neuro Neurologic: No system reviewed and no additional complaints, except as documented, No as per HPI, No abnormal gait, No abnormal hearing, No abnormal movements, No abnormal speech, No behavioral changes, No burning sensations, No confusion, No convulsions, No disequilibrium, No dizziness, No localized weakness, No frequent falls, No headache(s), No lack of coordination, No loss of vision, No memory loss, No numbness, No other visual disturbances, No radicular pain, No restless legs, No sensory deficit, No syncope, No tingling, No tremor(s), No weakness and No other Exam Const General: cooperative Orientation: alert and oriented x3 HENMT Head: normal to inspection Neck Neck: normal visual inspection and full ROM Chest Chest palpation & inspection: normal inspection of the chest Resp Effort & Inspection: normal respiratory effort Auscultation: clear to auscultation bilaterally Cardio Rate: regular rate Rhythm: regular rhythm GI Inspection: non-distended Palpation: soft and nontender Skin General: no rashes or lesions noted Neuro General: patient alert and patient oriented x3 Extrem General: full ROM Psych Appearance: grossly normal Mental Status: mental status grossly normal Assessment and Plan Assessment and Plan (1) Positive colorectal cancer screening using Cologuard test: Status: Acute Plan: Plan for colonoscopy. I explained endoscopy in detail to the patient. I explained the risks including but not limited to stroke or heart attack with anesthesia, perforation of the GI tract, bleeding, infection. I explained that any of these could necessitate further emergency surgery. The patient understands and all questions were answered sufficiently. The patient wishes to proceed with procedure. Patient may continue his aspirin. Pablo Tejada MD Pager: [facility] [address] [place] [address], [address] [place] [address] Office: I have examined the patient and the H&P has been reviewed. There are no clinical changes since date of exam.
[2022-10-01 09:55] VITALS: BP 119/52; BP 147/62; PULSE 61; RESP 16; TEMP 36.2; O2SAT 94
--- NOTE | 2022-10-01 09:56 | OP.COLON_ITS ---
Patient Name: Sher Alexander Procedure Date: 10/01/2022 9:26 AM Date of : 1955 Age: 67 Procedure: Colonoscopy Indications: Positive Cologuard test Providers: Pablo Tejada MD Referring MD: Alfredo Monsalve Medicines: Monitored Anesthesia Care Patient Profile: This is a 67 year old male. Refer to note in patient chart for documentation of history and physical. Last Colonoscopy: none. The patient's first colonoscopy is today. Complications: No immediate complications. Procedure: Pre-Anesthesia Assessment: - Prior to the procedure, a History and Physical was performed, and patient medications and allergies were reviewed. The patient's tolerance of previous anesthesia was also reviewed. The risks and benefits of the procedure and the sedation options and risks were discussed with the patient. All questions were answered, and informed consent was obtained. Prior Anticoagulants: The patient has taken no previous anticoagulant or antiplatelet agents. After reviewing the risks and benefits, the patient was deemed in satisfactory condition to undergo the procedure. After I obtained informed consent, the scope was passed under direct vision. Throughout the procedure, the patient's blood pressure, pulse, and oxygen saturations were monitored continuously. The pediatric colonoscope was introduced through the anus and advanced to the cecum, identified by appendiceal orifice and ileocecal valve. The colonoscopy was performed without difficulty. The patient tolerated the procedure well. The quality of the bowel preparation was good. Scope In: 9:39:32 AM Scope Withdrawal Time 0 hours 5 minutes 12 seconds Scope Out: 9:49:57 AM Total Procedure Duration Time 0 hours 10 minutes 25 seconds Findings: A large polyp was found in the sigmoid colon. The polyp was pedunculated. The polyp was removed with a hot snare. Resection and retrieval were complete. The exam was otherwise without abnormality on direct and retroflexion views. Impression: - One large polyp in the sigmoid colon, removed with a hot snare. Resected and retrieved. - The examination was otherwise normal on direct and retroflexion views. Recommendation: - Discharge patient to home. - Resume previous diet. - Continue present medications. - Await pathology results. - Repeat colonoscopy in 5 years for surveillance based on pathology results. Procedure Code(s): --- Professional --- 89338, Colonoscopy, flexible; with removal of tumor(s), polyp(s), or other lesion(s) by snare technique Diagnosis Code(s): --- Professional --- D12.5, Benign neoplasm of sigmoid colon R19.5, Other fecal abnormalities CPT copyright 2017 [employer]. All rights reserved. The codes documented in this report are preliminary and upon mental health coordinator review may be revised to meet current compliance requirements. Pablo Tejada MD 10/01/2022 9:56:10 AM This report has been signed electronically. Number of Addenda: 0 Note Initiated On: 10/01/2022 9:26 AM
--- NOTE | 2022-10-01 09:57 | OP.CCLET_ITS ---
10/01/2022 Alfredo Monsalve [address] [facility] [address] [place] [address] Re : Colonoscopy procedure for Sher Alexander Dear Dr. Monsalve This procedure was performed on Saturday, October 01, 2022. My impressions and recommendations are as follows: Impressions : - One large polyp in the sigmoid colon, removed with a hot snare. Resected and retrieved. - The examination was otherwise normal on direct and retroflexion views. Recommendations : - Discharge patient to home. - Resume previous diet. - Continue present medications. - Await pathology results. - Repeat colonoscopy in 5 years for surveillance based on pathology results. My findings are described in the full procedure note, which is enclosed. If I can be of further assistance, please feel free to contact me at Doctor phone number(s): , Work: . Sincerely, Pablo Tejada MD 10/01/2022 9:56:10 AM This report has been signed electronically.
[2022-10-01 10:00] VITALS: BP 112/57; BP 147/62; PULSE 58; RESP 16; O2SAT 94
[2022-10-01 10:05] VITALS: BP 117/48; BP 147/62; PULSE 60; RESP 16; O2SAT 95
[2022-10-01 10:10] VITALS: BP 103/50; BP 147/62; PULSE 61; RESP 16; TEMP 36.7; O2SAT 97
[2022-10-01 10:31] VITALS: BP 147/62
== END 2022-10-01 10:34 | disposition home or self-care (01) ==
LOC: EN 08:44 → AC 08:45
PROVIDERS: PCP Family Medicine; Referring Provider Family Medicine; Visit Provider Surgery
PROC: 0DJD8ZZ Inspection of Lower Intestinal Tract, Via Natural or Artificial Opening Endoscopic (ICD-10-PCS; CPT 45378; principal; 2022-10-01 09:40)
DX: Z12.11 Encounter for screening for malignant neoplasm of colon (principal); E78.00 Pure hypercholesterolemia, unspecified; I10 Essential (primary) hypertension; Z79.01 Long term (current) use of anticoagulants; D12.4 Benign neoplasm of descending colon; Z79.899 Other long term (current) drug therapy; Z79.82 Long term (current) use of aspirin; K21.9 Gastro-esophageal reflux disease without esophagitis
CPT/HCPCS: 45385; 88305; J7120; J2405

== ENCOUNTER → 2022-11-27 | Outpatient (CLI) | payer MEDICARE, OTHER, SELFPAY ==
[2022-11-27 15:44] LABS: PSA,Total- Diagnostic 0.82 ng/mL (0.0-4.0)
== END | disposition home or self-care (01) ==
PROVIDERS: PCP Family Medicine; Referring Provider Urology; Visit Provider Urology
DX: R53.83 Other fatigue (principal); R35.1 Nocturia
CPT/HCPCS: 36415; 84153; 84403

== ENCOUNTER → 2023-02-25 | Outpatient (CLI) | payer MEDICARE, OTHER, SELFPAY ==
[2023-02-25 15:40] LABS: Microalbumin:Creatinine Ratio 14.7 mg/g CRE (<30 mg/g CRE)
[2023-02-25 15:46] LABS: AST(SGOT) 23 U/L (15-37); Alanine Aminotransfer ALT/SGPT 28 U/L (16-61); Albumin, Serum 3.9 g/dL (3.2-5.0); Alkaline Phosphatase 101 U/L (45-117); Anion Gap 4 (5-15); BUN 10 mg/dL (7-18); BUN/Creat Ratio 11.5 RATIO (10-20); Calcium,Total 9.1 mg/dL (8.5-10.1); Chloride 109 mmol/L (98-107); Creatinine, Serum 0.87 mg/dL (0.70-1.30); EST Glomerular Filtration Rate 93 mL/min (>60); Est Glom Filt Rate - Afr Amer 112 mL/min (>60); Globulin 3.8 g/dL (2.2-4.2); Glucose 97 mg/dL (74-106); High Density Lipoprotein 49 mg/dL; Potassium 4.2 mmol/L (3.5-5.1); Protein, Total 7.7 g/dL (6.4-8.2); Sodium Level 139 mmol/L (136-145)
[2023-02-26 13:40] LABS: Cholesterol 173 mg/dL (200)
== END | disposition home or self-care (01) ==
PROVIDERS: PCP Family Medicine; Referring Provider Family Medicine; Visit Provider Family Medicine
DX: I10 Essential (primary) hypertension (principal); E78.5 Hyperlipidemia, unspecified
CPT/HCPCS: 36415; 80053; 82043; 82465; 82570; 83718

== ENCOUNTER → 2024-02-17 | Outpatient (CLI) | payer MEDICARE, OTHER, SELFPAY ==
[2024-02-17 18:10] LABS: Absolute Lymphocyte Count 1.62 X10^3/uL (0.83-4.51); Absolute Neutrophil Count 4.8 X10^3/uL (2.0-7.7); Basophil# 0.05 X10^3/uL; Basophil% 0.7 % (0-1); Eosinophil# 0.39 X10^3/uL; Eosinophils% 5.2 % (0-5); Hematocrit 40.9 % (40-54); Hemoglobin 14.6 g/dL (13.0-16.5); Lymphocyte # 1.62 X10^3/ul (0.83-4.51); Lymphocyte % 21.5 % (19-41); Mean Corp Hgb Conc 35.7 g/dL (32-36); Mean Corpuscular Hgb 31.1 pg (27.0-32.0); Mean Corpuscular Volume 87.2 fL (80-94); Monocyte# 0.69 X10^3/uL; Monocyte% 9.2 % (0-10); NRBC Flagged by Analyzer 0 % (0-5); Neutrophil # 4.75 X10^3/uL (2.7-7.7); Platelet Count 185 K/mm3 (150-450); RBC Distribution Width CV 12.6 % (11.6-14.6); RBC Distribution Width SD 39.8 fl (35.1-43.9); Red Blood Count 4.69 M/mm3 (4.6-6.2); White Blood Count 7.5 K/mm3 (4.4-11.0)
[2024-02-17 19:32] LABS: ALB/GLOB Ratio 1.4 RATIO (0.9-2.4); AST(SGOT) 22 U/L (15-37); Alanine Aminotransfer ALT/SGPT 23 U/L (16-61); Albumin, Serum 4.1 g/dL (3.2-5.0); Alkaline Phosphatase 100 U/L (45-117); Anion Gap 5 (5-15); BUN 16 mg/dL (7-18); BUN/Creat Ratio 16.8 RATIO (10-20); Calcium,Total 9.2 mg/dL (8.5-10.1); Chloride 108 mmol/L (98-107); Creatinine, Serum 0.95 mg/dL (0.70-1.30); EST Glomerular Filtration Rate 84 mL/min (>60); Est Glom Filt Rate - Afr Amer 101 mL/min (>60); Glucose 96 mg/dL (74-106); Potassium 4.1 mmol/L (3.5-5.1); Protein, Total 7.1 g/dL (6.4-8.2); Sodium Level 140 mmol/L (136-145)
== END | disposition home or self-care (01) ==
LOC: MFPLAB 15:23
PROVIDERS: PCP Family Medicine; Visit Provider Family Medicine
DX: I10 Essential (primary) hypertension (principal); F41.9 Anxiety disorder, unspecified
CPT/HCPCS: 36415; 80053; 84443; 85025

== ENCOUNTER → 2024-03-31 | Outpatient (CLI) | payer MEDICARE, OTHER, SELFPAY ==
--- NOTE | 2024-03-31 | LES_PTH ---
PATIENT: CHARITO CAROLINA LOC: [facility] U#:[id number] AGE/SX: 68/M ROOM: RE03/31/[address]: Dr. Alfredo Monsalve MD : 1955 BED: DIS: 03/31/2024 SPEC #: [id number] RECD: 03/31/24 10:12 STATUS: DOMINIC ERIKA #: [id number] KAREY: 03/31/24 00:[address]: Alfredo Monsalve DEPT: SURGICAL PATHOLOGY RECD BY: Marianne Dimas Tissues: Skin of forehead Procedures: Surgery Specimen Level IV HEADER OPERATION: Shave biopsy of left forehead PRE-OP DIAGNOSIS: Verrucal lesion / wart TISSUE SUBMITTED: Left forehead shave biopsy MICROSCOPIC DIAGNOSIS Left forehead lesion, shave biopsy: Inflamed verrucous keratosis. Negative for malignancy. See karla. 04/01/2024 COMMENT Clinical correlation and appropriate follow up are necessary. MICROSCOPIC DESCRIPTION Slides are reviewed. GROSS DESCRIPTION Received in fixative is one container labeled with the patient's name and designated Left forehead. The specimen consists of a piece of wang-white skin measuring 1 x 0.7 x 0.2cm. There is a wang round lesion on the surface measuring 0.5cm in diameter. The specimen is inked, serially sectioned and submitted entirely in one cassette. 03/31/2024 TC:5 CPT:72457
== END | disposition home or self-care (01) ==
PROVIDERS: PCP Family Medicine; Referring Provider Family Medicine; Visit Provider Family Medicine
DX: B07.9 Viral wart, unspecified (principal); L57.0 Actinic keratosis
CPT/HCPCS: 88305

== ENCOUNTER 2024-10-20 19:04 | Emergency (ER) | payer MEDICARE, OTHER, SELFPAY ==
[2024-10-20 19:05] VITALS: BP 195/83; PULSE 96; RESP 18; TEMP 36.6; O2SAT 100; BMI 32.6
--- NOTE | 2024-10-20 19:25 | EDS_ITS ---
HPI History of Present Illness Chief Complaint: Hypertension Narrative Narrative: Patient is a 69-year-old male presenting to the emergency department for hypertension. Patient has a past medical history of hypertension. States that few months ago he was transition from propranolol to metoprolol. He is also on amlodipine and irbesartan. States that yesterday he was at the dentist appointment and they told him he was hypertensive. States that he was anxious at that time. States that today he forgot to take his morning metoprolol. He just got a new blood pressure monitor at home and decided to check his blood pressure. States that it was in the systolics 180s and continued to climb after he continued to check it. He denies headache, vision changes, chest pain, shortness of breath, abdominal pain, vomiting, numbness or weakness in his extremities. PFSH PFSH Medical History Wears glasses Anxiety Marijuana use Hypertension High cholesterol Heartburn Non-smoker Home Medications ?Medication ?Instructions ?Recorded ?Last Taken ?Type pravastatin 80 mg tablet 80 mg PO DAILY Check with pr imary 02/03/18 Unknown History doctor amlodipine 10 mg tablet 10 mg PO DAILY Check with pr imary 02/12/22 Unknown History doctor irbesartan 300 mg tablet 300 mg PO DAILY Check with p rimary 02/12/22 Unknown History doctor propranolol 160 mg capsule,24 160 mg PO DAILY Check wi th primary 02/12/22 10/01/22 05:30 History hr,extended release doctor cetirizine 10 mg tablet (Zyrtec) 10 mg PO DAILY Check with primary 02/28/22 Unknown History doctor tadalafil 5 mg tablet 5 mg PO PRN 08/22/22 Unknown History aspirin 81 mg capsule 81 mg PO DAILY 09/26/22 Unkn own History Allergy/AdvReac Type Severity Reaction Status Date / Time escitalopram AdvReac Mild Other Verified 10/20/24 19:07 Family History Father CAD (coronary artery disease) Hypertension Grandmother Heart disease Hypertension Aunt Cancer ovarian Uncle Cancer kidney Surgical History S/P spinal fusion (02/28/22) S/P vasectomy History of wisdom tooth extraction History of tonsillectomy History of appendectomy Social History Smoking Status: Never smoker alcohol intake: current alcohol intake frequency: 3 or more drinks per day ROS ROS ED ROS Narrative See HPI EXAM Physical Exam Narrative Exam Narrative: Vital signs: Reviewed General: Alert and oriented. No acute distress HEENT: Head is normocephalic and atraumatic, sinuses nontender, pupils equal round and reactive. Nares are patent. Oropharynx and throat exams normal. Neck: Supple without lymphadenopathy nontender Cardiovascular: Regular rate and rhythm, no murmurs. No rubs or gallops. Normal S1 and S2 Respiratory: Clear to auscultation bilaterally. No wheezes, rales, rhonchi Abdominal: Soft and nontender. Normal bowel sounds. No guarding or rebound. Nonsurgical abdomen Extremities: No tenderness. No bruising. Normal range of motion. Normal sensation. Skin: No rash or redness. Neurological: Cranial nerves II through XII are grossly intact. Normal strength and sensation. Normal cerebellar function The rest of the physical exam is unremarkable Const Vital Signs: 10/20/24 19:05 10/20/24 19:28 10/20/24 19:50 Temperature 97.9 F Temperature Source Temporal Pulse Rate 96 81 Respiratory Rate 18 22 H Respiratory Effort Normal Non-Labored Respiratory Pattern Normal Blood Pressure 195/83 H 165/62 H Blood Pressure Mean 120 96 Pulse Ox 100 100 Oxygen Delivery Method Room Air 10/20/24 20:04 Temperature 96.9 F L Temperature Source Pulse Rate 85 Respiratory Rate 17 Respiratory Effort Respiratory Pattern Blood Pressure 154/73 H Blood Pressure Mean 100 Pulse Ox 100 Oxygen Delivery Method MDM MDM MDM Narrative Medical decision making narrative: Patient is a 69-year-old male presenting to the emergency department for hypertension. Patient was seen and examined. Vitals are stable. Blood pressure when I evaluated the patient was 154/73. He is resting in bed comfortably no acute distress. Patient has no signs of endorgan damage. He is only borderline hypertensive here. Has no complaints at time of evaluation. States when he was checking his blood pressure at home we continue to increase. I encouraged him to take his amlodipine that he is due for at bedtime tonight and to take his blood pressure only once in the morning and once at night and then follow-up with his primary care doctor and showed results. Patient feels comfortable with the plan. Patient discharged from the Emergency Department. I do not feel that the patient's evaluation reveals any acute reason for admission at this time. I instructed them to either follow-up with their primary care physician or promptly return to the Emergency Department for reevaluation should symptoms worsen or new symptoms develop. I explained what symptoms would indicate the need to return to the emergency department. Shared decision making was used. The patient voiced understanding of the treatment plan and is agreeable with it. Clinical impression: 1. Asymptomatic hypertension History & Record Review Discussion w/independent historian: Patient Discharge Plan Triage Chief Complaint: Hypertension ED Provider: Lara Malave Dx/Rx/DC Orders Clinical Impression: Asymptomatic hypertension Instructions: Hypertension Dc Prescriptions: No Action tadalafil 5 mg tablet 5 mg PO PRN Patient Comments: TAKE 1 TABLET BY MOUTH DAILY pravastatin 80 MG tablet 80 mg PO DAILY Patient Comments: TAKE 1 TABLET BY MOUTH EVERY DAY propranolol 160 mg Capsule,Extended Release 24 Hr 160 mg PO DAILY amlodipine 10 mg Tablet 10 mg PO DAILY irbesartan 300 mg Tablet 300 mg PO DAILY cetirizine [Zyrtec] 10 mg Tablet 10 mg PO DAILY aspirin 81 mg capsule 81 mg PO DAILY Primary Care Provider: Alfredo Monsalve Referrals: Alfredo Monsalve MD [Primary Care Provider] - 2 Days Activity Restrictions/Additional Instructions: Your evaluation in the Emergency Department did not reveal any acute reason for admission. However, I want to emphasize that you may be early in the course of a disease process or illness even if it is not present. For this reason you should follow-up within 24 hours for reevaluation with either your primary care physician or if necessary back here in the Emergency Department. You should return to the Emergency Department immediately if your symptoms worsen or new symptoms develop. Print Language: Israeli Disposition Disposition: Home, Self Care Discharge Date/Time: 10/20/24 20:06
[2024-10-20 19:28] VITALS: BP 165/62; PULSE 81; RESP 22; O2SAT 100
[2024-10-20 20:04] VITALS: BP 154/73; PULSE 85; RESP 17; TEMP 36.1; O2SAT 100
== END 2024-10-20 20:06 | disposition home or self-care (01) ==
LOC: ED 19:37
PROVIDERS: Emergency Provider Student in an Organized Health Care Education/Training Program; PCP Family Medicine; Referring Provider Student in an Organized Health Care Education/Training Program; Visit Provider Student in an Organized Health Care Education/Training Program
DX: I10 Essential (primary) hypertension (principal); E78.00 Pure hypercholesterolemia, unspecified; Z79.899 Other long term (current) drug therapy; Z79.82 Long term (current) use of aspirin; Z98.52 Vasectomy status; Z90.49 Acquired absence of other specified parts of digestive tract
CPT/HCPCS: 99282; A4216

== ENCOUNTER → 2024-10-25 | Outpatient (CLI) | payer MEDICARE, OTHER, SELFPAY ==
[2024-10-25 15:52] LABS: Hematocrit 41.5 % (40-54); Hemoglobin 15.2 g/dL (13.0-16.5); Immature Granulocytes Count 0.030 X10^3/uL (0.0-0.0); Mean Corp Hgb Conc 36.6 g/dL (32-36); Mean Corpuscular Volume 85.2 fL (80-94); Mean Platelet Vol. 10.3 fl (6.2-12.0); NRBC Flagged by Analyzer 0 % (0-5); Platelet Count 173 K/mm3 (150-450); RBC Distribution Width CV 12.2 % (11.6-14.6); RBC Distribution Width SD 37.8 fl (35.1-43.9); Red Blood Count 4.87 M/mm3 (4.6-6.2); White Blood Count 7.3 K/mm3 (4.4-11.0)
[2024-10-25 16:09] LABS: AST(SGOT) 25 U/L (<=37); Alanine Aminotransfer ALT/SGPT 21 U/L (<=46); Albumin, Serum 4.4 g/dL (3.4-4.8); Alkaline Phosphatase 89 U/L (40-129); Anion Gap 12 (5-15); BUN 14 mg/dL (4-19); BUN/Creat Ratio 16.8 RATIO (10-20); Calcium,Total 9.3 mg/dL (7.6-11.0); Carbon Dioxide 23.1 mmol/L (21.0-32.0); Chloride 105 mmol/L (98-108); Cholesterol 153 mg/dL (<=200); Globulin 2.8 g/dL (2.2-4.2); Glucose 91 mg/dL (70-99); Low Density Lipoprotein Calc. 61 mg/dL; Potassium 3.9 mmol/L (3.3-5.1); Triglycerides 190 mg/dL; Very Low Density Lipoprotein 38 mg/dL (5-40); cholesterol:hdl ratio screen 2.81
[2024-10-25 16:13] LABS: Creatinine, Urine (random) 170.00 mg/dL (39.00-259.00); Microalbumin,Random Urine < 12.0 mg/L (<20 mg/L)
== END | disposition home or self-care (01) ==
LOC: MTLAB 12:54
PROVIDERS: PCP Family Medicine; Referring Provider Family Medicine; Visit Provider Family Medicine
DX: I10 Essential (primary) hypertension (principal); E78.5 Hyperlipidemia, unspecified
CPT/HCPCS: 36415; 80053; 80061; 82043; 82570; 85025